=== PATIENT | female | born 1965 | race Two or more races ===

== ENCOUNTER → 2018-04-13 | Outpatient (CLI) | payer OTHER ==
[~2018-04-13] MED LIST: CALC500T6 PO; CETI-176 PO; CINN500C12 PO; EPIN0.3P15 IM; FLAX100041 PO; FLUT16SP19 NS; HYDR-2966 PO; MAGN27TA6 PO; MECL12.5 PO; MULT-865 PO; OLME40TA28 PO; POTA-23 PO; TIOT4MIS3 INH
[2018-04-13 16:47] LABS: PLATELET COUNT, AUTOMATED 291 K/uL (150-450)
[2018-04-13 17:23] LABS: LDL CHOLESTEROL 143 mg/dl
== END ==
LOC: LAB 16:21
PROVIDERS: ATTEND Emergency Medicine
DX: I10 Essential (primary) hypertension (principal)
CPT/HCPCS: 36415; 82040; 82247; 82310; 82374; 82435; 82465; 82565; 82947; 83718; 84075; 84132; 84155; 84295; 84443; 84450; 84460; 84478; 84520; 85025

== ENCOUNTER → 2018-04-23 | Outpatient (CLI) | payer OTHER | LOC: LAB 08:09 | PROVIDERS: ATTEND Emergency Medicine | DX: Z12.11 Encounter for screening for malignant neoplasm of colon (principal) | CPT/HCPCS: 82274 ==

== ENCOUNTER → 2018-05-04 | Outpatient (CLI) | payer OTHER | LOC: LAB 16:29 | PROVIDERS: ATTEND Emergency Medicine | DX: I10 Essential (primary) hypertension (principal); E83.52 Hypercalcemia; E87.6 Hypokalemia | CPT/HCPCS: 36415; 82088; 82306; 82310; 83735; 83970 ==

== ENCOUNTER 2018-08-04 15:15 | Outpatient (RCR) | payer OTHER ==
--- NOTE | 2018-07-07 11:40 | PT INITIAL EVALUATION ---
MEDICAL DIAGNOSIS: Sciatica of right side TREATMENT DIAGNOSIS: same DATE OF ONSET: 05/19/18 SUBJECTIVE: Almita Mota presents to physical therapy with sciatica of right side that started around the April while at a wedding. She reports that sitting makes her pain worse and typically sit 6-8 hours per day due to her occupation. She rates her current pain to be 5/10. She reports that being still, standing, lying, and in the am tend to be worse or aggravating activities. She reports that walking and being on the move tend to be better with the R sciatica pain. She reports that she has some R sided low back pain that continues down the posterior side of her R leg down into the knee. She reports that the continues to have some numbness and tingling down the R LE into the R foot. She reports increased pain with coughing, sneezing, and straining. She reports that she has not had an abnormal bladder control. She denies unexplained weight loss, recent surgeries, or accidents. She reports that improving posture or slumping does not seem to change the pain. Pain location is R posterior hip to thigh, R SI region, and described as sharp and achy. Pain scale is 5 on a ten point pain scale. REHAB PROBLEM LIST: Increased Pain Decreased ROM Decreased Endurance Decreased Function Decreased ADL's Decreased Gait PREVIOUS MEDICAL HISTORY: See EMR OCCUPATION: [employer] OBJECTIVE: Posture: She demonstrated minimal forward head, B rounded shoulder, increased thoracic kyphosis, and decreased lumbar lordosis ROM: Trunk flexion: major restriction with empty end feel. extension: moderate restriction with empty end feel. side gliding R: minimal restriction with empty end feel. side gliding L: NIL with normal end feel. Palpation: TTP: From R SI region down into R posterior buttock down into R posterior thigh and into the R posterior knee. Sensation: Decreased sensation on R LE from L3-S1 otherwise they are intact and equal on B LE's Special Tests: Repeated extension: pain during the test and better following the test with increased trunk AROM in all directions. Repeated flexion: stretch during the test and worse following the test with decreased trunk AROM in all directions. Mobility: Independent Gait: She demonstrated antalgic gait with decreased L step length, decreased velocity, and decreased pelvic rotation. ASSESSMENT: Almita will benefit from skilled physical therapy to address the listed impairments to improve function and QOL. She demonstrated a provisional classification of posterior derangement that responded well to extension based principles. Short Term Goals 2 weeks: She will demonstrate centralized low back pain to improve function and QOL. 3 weeks: She will demonstrate abolished low back pain to improve function and QOL. 6 weeks: She will demonstrate abolished low back pain and return to prior level of function. Patient's Goals reduce sciatica pain PLAN: Patient to be seen for Manual Therapy/STM/MET Strengthening/condition Range of Motion Spinal Stabilization Work Hardening/Cond Stretching Neuromuscular Re-ed Closed Chain Program Posture/Body mechanics Gait Trg/Balance Trg Home Exercise Program Therapeutic Activities 2-3x/week for 6 Weeks If you have any questions, comments, or concerns about this report or plan, please contact me at . Thank you, David Baeza, PT, DPT MTDD
[~2018-08-04 15:15] MED LIST changes: +CYCL10TA29 PO; +MELO-207 PO; +OXYC-854 PO; +PER PO
--- NOTE | 2018-08-04 17:54 | PT PLAN OF CARE ---
Physician: Gloria Babb MD Patient is being seen: 2x/week Therapist: David Baeza, PT, DPT Medical Diagnosis: Sciatica of right side Treatment Diagnosis: same Date of Onset: 05/19/18 Date of Initial Evaluation: 07/06/18 Date patient was last seen: 08/04/18 Number of treatments: 10 Number of cancellations/No shows: 0 INTERVENTIONS: Manual Therapy/STM/MET Strengthening/condition Range of Motion Spinal Stabilization Work Hardening/Cond Stretching Neuromuscular Re-ed Closed Chain Program Posture/Body mechanics Gait Trg/Balance Trg Home Exercise Program Therapeutic Activities GOALS: 2 weeks: She will demonstrate centralized low back pain to improve function and QOL. Not met 3 weeks: She will demonstrate abolished low back pain to improve function and QOL. Not Met 6 weeks: She will demonstrate abolished low back pain and return to prior level of function. Not Met PATIENT'S GOAL: reduce sciatica pain Status of Patient's Goals: Not Met; slow progress to no progress Patient Compliance: Excellent Prognosis: Excellent Reasons for continuing therapy: This is a progress note for Almita Nakul. She reports that she continues to have the pain around the posterior hip. She reports that it does feel better with the traction. She reports that sitting continues to be worse. She demonstrates directional preference with repeated hip ER and with inferior glides of her R hip with reduced pain and increased R hip IR, extension, and flexion AROM. We have determined that the low back does not have mechanical pain as it does not respond accordingly. Furthermore, with her R hip pain, we can find a technique that reduces the pain but does not have lasting effect greater than a few hours. I think based on what we have seen and with the lack of results that we should pursue more imaging or a referral to an patient registration specialist based on your preference. Posture: She demonstrated minimal forward head, B rounded shoulder, increased thoracic kyphosis, and decreased lumbar lordosis ROM: Trunk flexion: major restriction with empty end feel. extension: moderate restriction with empty end feel. side gliding R: minimal restriction with empty end feel. side gliding L: NIL with normal end feel. Palpation: TTP: From R SI region down into R posterior buttock down into R posterior thigh and into the R posterior knee. Special Tests: Does not demonstrate directional preference with her low back, does demonstrate directional preference with hip ER, but does not have lasting results. Mobility: Independent If you have any questions, please contact me at [phone]. Thank you, David Baeza PT, DPT JUAN LUIS
--- NOTE | 2018-08-25 15:23 | PT PLAN OF CARE ---
Physician: Gloria Babb MD Patient is being seen: 2x/week Therapist: David Baeza, PT, DPT Medical Diagnosis: Sciatica of right side Treatment Diagnosis: same Date of Onset: 05/19/18 Date of Initial Evaluation: 07/06/18 Date patient was last seen: 08/04/18 Number of treatments: 10 Number of cancellations/No shows: 0 INTERVENTIONS: Manual Therapy/STM/MET Strengthening/condition Range of Motion Spinal Stabilization Work Hardening/Cond Stretching Neuromuscular Re-ed Closed Chain Program Posture/Body mechanics Gait Trg/Balance Trg Home Exercise Program Therapeutic Activities GOALS: 2 weeks: She will demonstrate centralized low back pain to improve function and QOL. Not met 3 weeks: She will demonstrate abolished low back pain to improve function and QOL. Not Met 6 weeks: She will demonstrate abolished low back pain and return to prior level of function. Not Met PATIENT'S GOAL: reduce sciatica pain Status of Patient's Goals: Not Met; slow progress to no progress Patient Compliance: Excellent Prognosis: Excellent Reasons for continuing therapy: This is a discharge note for Almita Mota. She reports that she continues to have the pain around the posterior hip. She reports that it does feel better with the traction. She reports that sitting continues to be worse. She demonstrates directional preference with repeated hip ER and with inferior glides of her R hip with reduced pain and increased R hip IR, extension, and flexion AROM. We have determined that the low back does not have mechanical pain as it does not respond accordingly. Furthermore, with her R hip pain, we can find a technique that reduces the pain but does not have lasting effect greater than a few hours. I think based on what we have seen and with the lack of results that we should pursue more imaging or a referral to an transfer specialist based on your preference. As a result, she will be discharged from PT to [facility]. Posture: She demonstrated minimal forward head, B rounded shoulder, increased thoracic kyphosis, and decreased lumbar lordosis ROM: Trunk flexion: major restriction with empty end feel. extension: moderate restriction with empty end feel. side gliding R: minimal restriction with empty end feel. side gliding L: NIL with normal end feel. Palpation: TTP: From R SI region down into R posterior buttock down into R posterior thigh and into the R posterior knee. Special Tests: Does not demonstrate directional preference with her low back, does demonstrate directional preference with hip ER, but does not have lasting results. Mobility: Independent If you have any questions, please contact me at [phone]. Thank you, David Baeza, PT, DPT GUYD
== END 2018-08-04 18:00 | disposition home or self-care (01) ==
LOC: PT 15:15
PROVIDERS: ATTEND Emergency Medicine
DX: M54.31 Sciatica, right side (principal)
CPT/HCPCS: 97161

== ENCOUNTER → 2018-08-25 | Outpatient (CLI) | payer OTHER ==
[2018-08-25 08:24] LABS: PLATELET COUNT, AUTOMATED 299 K/uL (150-450)
== END ==
LOC: LAB 07:55
PROVIDERS: ATTEND Emergency Medicine
DX: M54.30 Sciatica, unspecified side (principal)
CPT/HCPCS: 36415; 82040; 82247; 82310; 82374; 82435; 82565; 82947; 84075; 84132; 84155; 84295; 84450; 84460; 84520; 85025; 86140

== ENCOUNTER → 2018-09-24 | Outpatient (CLI) | payer OTHER ==
[~2018-09-24] MED LIST changes: +POTA20TA85 PO
--- NOTE | 2018-09-24 16:30 | RADIOLOGY IMAGING REPORT ---
FACILITY: [facility] PATIENT NAME: Almita Mota : 1965 MR: [id number] V: [id number] EXAM DATE: ORDERING PHYSICIAN: KURT ELLIS TECHNOLOGIST: [place] [facility] [place] M[place] : 1965 Visit/Account:[id number] Date of Sevice: 09/24/2018 MRI of the lumbar spine Indication: Right-sided sciatica. Radiculopathy. Comparison: None available. Technique: Sagittal T2-weighted, sagittal STIR, sagittal T1-weighted, and axial T2-weighted images of the lumbar spine were obtained. Findings: The conus terminates normally at level of T12-L1 Fatty lesion within the inferior L1 vertebral body likely represents a small hemangioma. There is al so a small hemangioma inferior endplate of T11. There is no abnormal signal within the visualized spinal cord, The vertebral body heights are well maintained. Disc desiccation seen throughout the lumbar spine levels with minimal disc space narrowing at L5-S1. There is also minimal disc space narrowing at L2-L3. There is mild right common curvature lumbar spine with apex at L3-L4.. Sagittal images of T11-T12 and T12-L1 show no significant central stenosis or foraminal narrowing. Incidental note of bilateral extrarenal pelvises. L1-L2: No significant central stenosis or neural foraminal narrowing. L2-L3: Minimal diffuse disc bulge and facet arthropathy with overall no significant central stenosis or foraminal narrowing. L3-L4: Mild diffuse as well as facet arthropathy results in overall minimal central stenosis. Ther e is minimal right-sided and mild left-sided neural foraminal narrowing. L4-L5: Mild diffuse disc bulge and facet arthropathy results in overall minimal central stenosis. Th ere is mild left-sided neural foraminal narrowing and the right neural foramen is patent. L5-S1: There is a mild diffuse disc bulge with a prominent right paracentral disc protrusion superi mposed causing mild mass effect the descending right S1 nerve. His overall mild central stenosis. T here is no significant neural foraminal narrowing. Impression: 1. Degenerative change lumbar spine as above most significant at L5-S1 where there is a right parace ntral disc protrusion abutting the descending right S1 nerve. Report Dictated By: David Nelson MD at 09/24/2018 4:23 PM Report E-Signed By: David Nelson MD at 09/24/2018 4:26 PM WSN:[id number]
== END ==
LOC: MRI 09-02 00:35
PROVIDERS: ATTEND Neurological Surgery
DX: M51.36 Other intervertebral disc degeneration, lumbar region (principal)
CPT/HCPCS: 72148

== ENCOUNTER → 2019-03-18 | Outpatient (CLI) | payer OTHER ==
[~2019-03-18] MED LIST changes: +GLYC10.7 INH; +LEVA15HF IH
--- NOTE | 2019-03-18 15:33 | RADIOLOGY IMAGING REPORT ---
FACILITY: [facility] PATIENT NAME: Almita Mota : 1965 MR: [id number] V: [id number] EXAM DATE: ORDERING PHYSICIAN: JOHAN RODRIGUEZ TECHNOLOGIST: Location: [facility] Patient: Almita Mota : 1965 Visit/Account:[id number] Date of Sevice: 03/18/2019 EXAMINATION: MR SPINE LUMBAR W/O CON INDICATION: Right-sided pain, history of prior surgery COMPARISON: September 24, 2018 TECHNIQUE: Multiplane MR imaging was performed through the lumbar spine without contrast. FINDINGS: Vertebral bodies and posterior elements: Normal Conus position/signal: Normal Marrow signal: Benign L1 vertebral body hemangioma noted. Extraspinal structures including psoas muscles/paraspinal soft tissues: The right ovary is positioned in the right upper pelvis/right lower abdomen just lateral to the psoas muscle. Right ovarian cyst m easures 1.7 cm and contains a thin internal septation. There may alternatively be a small cyst adjace nt to the dominant 1.7 cm cyst, axial T2 image 13. This appears new compared to prior. New postoperative architectural distortion posteriorly at the L5-S1 disc space level. Other: Small T11-12 disc protrusion is unchanged and results in no significant canal narrowing. L1-2: No disc protrusion or canal/foraminal narrowing. L2-3: Minimal unchanged disc bulge. Mild unchanged disc space degeneration. Otherwise normal. L3-4: Minimal unchanged disc bulge. Mild unchanged facet arthropathy. No canal narrowing. Mild unchan ged bilateral foraminal narrowing. L4-5: Small unchanged disc bulge. No canal narrowing. Mild unchanged facet arthropathy. Mild to moder ate left and mild right unchanged foraminal narrowing. L5-S1: Moderate unchanged disc space degeneration. Small disc protrusion has significantly decreased in size. No canal or lateral recess narrowing. Mild unchanged facet arthropathy. Mild unchanged right and minimal unchanged left foraminal narrowing. IMPRESSION: 1. Small L5-S1 disc protrusion has significantly decreased in size following surgery. This results in no canal or lateral recess narrowing. Previously seen right L5-S1 lateral recess narrowing has resolved. 2. Mild unchanged multilevel facet arthropathy. 3. Multilevel unchanged foraminal narrowing, see level by level comments above. 4. Unchanged multilevel disc space degeneration most pronounced at L5-S1. 5. Apparent new right 1.7 cm septated right ovarian cyst or 2 closely positioned right ovarian small cysts. This may be benign. Given patient age ultrasound follow-up in 4-6 weeks may be warranted to en sure resolution. Report Dictated By: Ed Hung MD at 03/18/2019 3:18 PM Report E-Signed By: Ed Hung MD at 03/18/2019 3:29 PM WSN:[id number]
== END ==
LOC: MRI 01:34
PROVIDERS: ATTEND Neurological Surgery
DX: M47.897 Other spondylosis, lumbosacral region (principal); Z98.890 Other specified postprocedural states
CPT/HCPCS: 72148

== ENCOUNTER → 2019-03-21 | Outpatient (CLI) | payer OTHER ==
[2019-03-21 16:13] LABS: PLATELET COUNT, AUTOMATED 304 K/uL (150-450)
== END ==
LOC: LAB 15:41
PROVIDERS: ATTEND Neurological Surgery
DX: T81.40XA Infection following a procedure, unspecified, initial encounter (principal)
CPT/HCPCS: 36415; 85025; 85651; 86140

== ENCOUNTER → 2019-04-21 | Outpatient (CLI) | payer OTHER ==
--- NOTE | 2019-04-21 19:03 | RADIOLOGY IMAGING REPORT ---
FACILITY: [facility] [place] PATIENT NAME: Almita Mota : 1965 MR: [id number] V: [id number] EXAM DATE: ORDERING PHYSICIAN: KURT ELLIS TECHNOLOGIST: Location: Patient: Almita Mota : 1965 Visit/Account:[id number] Date of Sevice: 04/21/2019 PELVIC HISTORY: ovarian cyst TECHNIQUE: Transabdominal and transvaginal ultrasound pelvis. Transvaginal imaging was performed in effort to visualize ovaries COMPARISON: MRI lumbar spine 03/18/2019 FINDINGS: Uterus: Surgically absent. Vaginal cuff: Grossly unremarkable. Ovaries: Right - not able to be visualized. Left - 1.5 x 1.7 x 1.8 cm and unremarkable. Blood flow is documented in the left ovary by duplex Doppler ultrasound. Adnexa: Grossly unremarkable. Free pelvic fluid: None. IMPRESSION: Right ovary not able to be visualized, otherwise unremarkable ultrasound pelvis post hysterectomy. Note, right ovarian cyst on prior MRI contained a single thin internal septation without other apprec iable complexity. According to ACR recommendations regarding incidental adnexal cysts identified by C T or MRI in the premenopausal or early postmenopausal patient, benign or probably benign appearing cy sts such as this and measuring less than or equal to 3 cm,do not necessitate further evaluation or im aging follow-up. Jefferson San et al. Managing Incidental Findings on Abdominal and Pelvic CT and MRI, Part 1: Wh ite Paper of the ACR Incidental Findings Committee II on Adnexal Findings. Journal of the [place] [employer] 2013. Report Dictated By: Jose Anguiano MD at 04/21/2019 6:48 PM Report E-Signed By: Jose Anguiano MD at 04/21/2019 6:59 PM WSN:[id number]
== END ==
LOC: US 00:51
PROVIDERS: ATTEND Emergency Medicine
DX: N83.209 Unspecified ovarian cyst, unspecified side (principal)
CPT/HCPCS: 76856